=== PATIENT | female | born 1975 | race Caucasian/White ===

== ENCOUNTER 2020-08-24 21:19 | Emergency (ER) | payer BC ==
[2020-08-24] MEDS ORDERED: Diphtheria,Pertussis(Acell),Tetanus Vaccine 0.5 ML Syringe IM ONE (21:40)
[2020-08-24] MEDS ORDERED: Lidocaine 1% 10 ML MDV INJECT ONE (21:40)
--- NOTE | 2020-08-24 21:41 | EDM.PDOC ---
ED HPI GENERAL MEDICAL PROBLEM - General Chief Complaint: Laceration Stated Complaint: HAND LAC Time Seen by Provider: 08/24/20 21:37 Source of Information: Reports: Patient History Limitations: Reports: No Limitations - History of Present Illness INITIAL COMMENTS - FREE TEXT/NARRATIVE: Patient is a 45-year-old female presents to the emergency department with complaints of a laceration to the volar aspect of her left hand. States she was cutting some ties with a box knife when it slipped and cut her hand. Last tetanus vaccination was over 10 years ago. Finger-Index Pain Score (Numeric/FACES): 8 - Related Data Allergies Allergy/AdvReac Type Severity Reaction Status Date / Time adhesive Allergy Hives Verified 08/24/20 21:29 Home Meds: Home Meds Cyclobenzaprine [Flexeril] 1 tab PO DAILY PRN 08/24/20 [History] Levothyroxine 150 mcg PO ACBREAKFAST 08/24/20 [History] atorvaSTATin [Lipitor] 10 mg PO BEDTIME 08/24/20 [History] Past Medical History Cardiovascular History: Reports: High Cholesterol Endocrine/Metabolic History: Reports: Hypothyroidism Social & Family History - Tobacco Use Tobacco Use Status *Q: Never Tobacco User Second Hand Smoke Exposure: No - Caffeine Use Caffeine Use: Reports: Coffee - Recreational Drug Use Recreational Drug Use: No ED ROS GENERAL - Review of Systems Review Of Systems: Comprehensive ROS is negative, except as noted in HPI. ED EXAM, SKIN/RASH Exam: See Below General Appearance: Alert, WD/WN, No Apparent Distress Respiratory/Chest: No Respiratory Distress, Lungs Clear, Normal Breath Sounds, No Accessory Muscle Use, Chest Non-Tender Cardiovascular: Normal Peripheral Pulses, Regular Rate, Rhythm, No Edema, No Gallop, No JVD, No Murmur, No Rub Neurological: Alert, Oriented, CN II-XII Intact, Normal Cognition, Normal Gait, Normal Reflexes, No Motor/Sensory Deficits Psychiatric: Normal Affect, Normal Mood Skin: Other (1.5 cm laceration to the volar aspect of patient's left hand proximal to the MCP joint of the second finger. No active bleeding on exam.) ED SKIN PROCEDURES - Laceration/Wound Repair Left Ventral Hand Appearance: Subcutaneous Distal NVT: Neuro & Vascular Intact Anesthetic Type: Local Local Anesthesia - Lidocaine (Xylocaine): 1% Plain Local Anesthetic Volume: 2cc Skin Prep: Chlorhexidine (Hibiciens), Providone-Iodine (Betadine), Saline Exploration/Debridement/Repair: Wound Explored, No Foreign Material Found Closed with: Sutures Lac/Wound length In cm: 1.5 Suture Size: 4-0 # of Sutures: 3 Suture Type: Nylon Sterile Dressing Applied: Nurse Tetanus Status Addressed: Yes Complications: No Course - Vital Signs Last Recorded V/S: Last Vital Signs Temp 98.7 F 08/24/20 21:31 Pulse 86 08/24/20 21:31 Resp 16 08/24/20 21:31 BP 101/67 08/24/20 21:31 Pulse Ox 99 08/24/20 21:31 - Orders/Labs/Meds Meds: Medications Discontinued Medications Generic Name Dose Route Start Last Admin Trade Name Adrian PRN Reason Stop Dose Admin Diphtheria/Tetanus/Acell Pertussis 0.5 ml 08/24/20 21:40 08/24/20 21:45 Adacel IM 08/24/20 21:41 0.5 ml .ONCE ONE Administration Lidocaine HCl 10 ml 08/24/20 21:40 08/24/20 21:45 Xylocaine 1% INJECT 08/24/20 21:41 10 ml ONETIME ONE Administration Departure - Departure Time of Disposition: 21:58 Disposition: Home, Self-Care 01 Condition: Good Clinical Impression: Laceration - Discharge Information *PRESCRIPTION DRUG MONITORING PROGRAM REVIEWED*: No *COPY OF PRESCRIPTION DRUG MONITORING REPORT IN PATIENT JR: No Instructions: Sutures, Kristie, or Adhesive Wound Closure, [id number] Referrals: Alysha Del Rosario [Primary Care Provider] - Forms: ED Department Discharge Additional Instructions: You were seen in the emergency department today for a laceration to your left hand. The wound was cleansed and closed with 3 sutures. These should stay intact for 7-10 days. After that time they may be removed in the clinic by a nurse. The number to call and schedule a nurse visit for removal is [phone]. Keep the wound clean and dry. Wash with normal soap and water twice daily. Do not submerge the wound in water. Watch for signs of infection including increased redness, swelling, or purulent drainage. If these should occur, you should be seen either in the clinic or in the emergency department as antibiotic treatment may be needed. Return to the ER as needed. Sepsis Event Note (ED) - Evaluation Sepsis Screening Result: No Definite Risk
== END 2020-08-24 22:05 | disposition home or self-care (01) ==
LOC: JD.ED 21:19
DX: S61.412A Laceration without foreign body of left hand, initial encounter (principal); E78.00 Pure hypercholesterolemia, unspecified; E03.9 Hypothyroidism, unspecified; Z79.899 Other long term (current) drug therapy; Z23 Encounter for immunization; Z91.048 Other nonmedicinal substance allergy status; W26.0XXA Contact with knife, initial encounter
CPT/HCPCS: 12001; 90471; 90715; 99282; J2001